=== PATIENT | female | born 1940 | race Caucasian/White ===

== ENCOUNTER → 2020-04-29 10:00 | Outpatient (BNVA) | payer MEDICARE, SELFPAY | PROVIDERS: Family Provider Family Medicine; PCP Family Medicine; Visit Provider Family Medicine | DX: I10 Essential (primary) hypertension (principal); K21.9 Gastro-esophageal reflux disease without esophagitis | CPT/HCPCS: 80053; 80061; 84443; 85025 ==

== ENCOUNTER → 2021-05-05 10:49 | Outpatient (BNVA) | payer MEDICARE, SELFPAY | PROVIDERS: Family Provider Family Medicine; PCP Family Medicine; Visit Provider Family Medicine | DX: I10 Essential (primary) hypertension (principal); H10.32 Unspecified acute conjunctivitis, left eye; E55.9 Vitamin D deficiency, unspecified | CPT/HCPCS: 80053; 80061; 84443; 85025 ==

== ENCOUNTER → 2021-08-03 10:50 | Outpatient (BNVA) | payer MEDICARE, SELFPAY | PROVIDERS: Family Provider Family Medicine; PCP Family Medicine; Visit Provider Orthopaedic Surgery | DX: M54.5 Low back pain (principal) | CPT/HCPCS: 72110 ==

== ENCOUNTER 2021-11-17 14:47 | Outpatient (CLI) | payer MEDICARE, SELFPAY ==
--- NOTE | 2021-11-17 14:58 | XR_ITS ---
WS: [id number] LUMBAR SPINE TECHNIQUE: 5 views of the lumbar spine CLINICAL INFORMATION: M54.50 - Low back pain, unspecified COMPARISON: August 03, 2021 FINDINGS: Evaluation is limited due to marked scoliosis. Advanced thoracolumbar scoliosis convex left. Osteopenia. Chronic biconcave compression L2 vertebral body unchanged. Retrolisthesis L2 on L3 and L1 on L2. Retrolisthesis L1 on L2 measuring 14 mm in neut ral. Mild instability on flexion extension again demonstrated. Moderate facet arthropathy L5-S1. Pelv ic phleboliths. XR/XR lumbar spine min 4V [id number] IMPRESSION: 1. Advanced thoracolumbar scoliosis convex left 2. Osteopenia. 3. Grade 2 retrolisthesis L1 on L2 with flexion/extension instability unchange d from previous. 4. Chronic biconcave compression L2 vertebral body unchanged.
== END 2021-11-17 14:48 | disposition home or self-care (01) ==
PROVIDERS: PCP Family Medicine; Visit Provider Family Medicine
DX: M41.85 Other forms of scoliosis, thoracolumbar region (principal); M85.88 Other specified disorders of bone density and structure, other site; S32.029A Unspecified fracture of second lumbar vertebra, initial encounter for closed fracture; X58.XXXA Exposure to other specified factors, initial encounter
CPT/HCPCS: 72110

== ENCOUNTER → 2022-05-12 11:05 | Outpatient (BNVA) | payer MEDICARE, SELFPAY | PROVIDERS: PCP Family Medicine; Visit Provider Nurse Practitioner | DX: I10 Essential (primary) hypertension (principal); R53.1 Weakness; R42 Dizziness and giddiness; F41.9 Anxiety disorder, unspecified; G62.9 Polyneuropathy, unspecified; R32 Unspecified urinary incontinence | CPT/HCPCS: 80053; 80061; 85025 ==

== ENCOUNTER 2022-05-24 06:00 | Outpatient (RCR) | payer MEDICARE, SELFPAY | END 2022-06-12 23:59 | disposition home or self-care (01) | LOC: TPT 06:00 | PROVIDERS: PCP Family Medicine; Referring Provider Nurse Practitioner; Visit Provider Nurse Practitioner | DX: R53.1 Weakness (principal); R42 Dizziness and giddiness | CPT/HCPCS: 97110; 97162 ==

== ENCOUNTER 2022-06-13 06:00 | Outpatient (RCR) | payer MEDICARE, SELFPAY | END 2022-07-13 23:59 | disposition home or self-care (01) | LOC: TPT 06:00 | PROVIDERS: PCP Family Medicine; Visit Provider Nurse Practitioner | DX: R53.1 Weakness (principal); R42 Dizziness and giddiness | CPT/HCPCS: 97110; 97116 ==

== ENCOUNTER 2022-07-14 06:00 | Outpatient (RCR) | payer MEDICARE, SELFPAY | END 2022-08-12 23:59 | disposition home or self-care (01) | LOC: TPT 06:00 | PROVIDERS: PCP Family Medicine; Visit Provider Nurse Practitioner | DX: R53.1 Weakness (principal); R42 Dizziness and giddiness | CPT/HCPCS: 97110; 97116 ==

== ENCOUNTER 2022-10-01 14:11 | Emergency (ER) | payer MEDICARE, SELFPAY ==
[2022-10-01] VITALS (11 sets, daily range): BP systolic 161–182; BP diastolic 86–105; PULSE 85–93; RESP 16–18; TEMP 36.7; O2SAT 93–96; BMI 29.9
--- NOTE | 2022-10-01 14:39 | ECG_ITS ---
[facility] Test Date: 2022-10-01 Pat Name: Ale Joy Department: Room: Gender: Female Survey And Mapping Technician: : 1940 Requested By: Roque Bermudez Order Number: [id number] Flori MD: Devon Hassan M.D. Measurements Intervals [place] Rate: 94 P: 73 AR: 165 QRS: 60 QRSD: 83 T: 72 QT: 359 QTc: 449 Interpretive Statements SINUS RHYTHM No previous ECG available for comparison Electronically Signed On 10-03-2022 18:22:15 COAL [employer]RE CONTROLLER by Devon Hassan M.D. [id number]
--- NOTE | 2022-10-01 15:05 | XRR_ITS ---
PROCEDURE INFORMATION: Exam: XR Chest Exam date and time: 10/01/2022 4:30 PM Age: 82 years old Clinical indication: Shortness of breath; Additional info: SOB TECHNIQUE: Imaging protocol: Radiologic exam of the chest. Views: 2 views. COMPARISON: CR XR chest 1V [id number] 09/16/2019 11:31 AM FINDINGS: Lungs: Curvilinear areas of left basilar scarring. Evaluation of the right mid and lower lungs is obscured by the opacification in this region, a suspected large hiatal hernia with possible atelectasis or scarring of the adjacent lung in this region. No consolidation. Pleural spaces: No pleural effusion. No pneumothorax. Heart/Mediastinum: No cardiomegaly. There is a suspected large hiatal hernia contributing to the opacification projecting over the right mid and lower lung. Bones/joints: Severe scoliosis with increased kyphosis of the thoracic spine again noted. Visualized osseous structures are intact. XR/XR chest 2V* [id number] IMPRESSION: Stable exam, no acute findings.
--- NOTE | 2022-10-01 15:53 | ED_ITS ---
HPI - SOB/Dyspnea General: Chief Complaint: Shortness of Breath/Dyspnea Stated Complaint: SOB Time Seen by Provider: 10/01/22 15:01 History of Present Illness: HPI Narrative: 82-year-old female presents with some shortness of breath. Patient reports that she just feels like she is having hard time catching her breath. She reports that started yesterday. She has a minimal cough. No fevers or chills reported. Patient reports that was worse yesterday and today. She denies any nausea, vomiting diarrhea or chest pain. Associated symptoms: Deny abdominal pain, chest pain, dizziness, fever(s), nausea, palpitations or vomiting Review of Systems Const: Denies: fever(s), chills or fatigue Eyes: Denies: change in vision or blurry vision ENMT: Denies: throat pain or ear or mastoid pain Card: Denies: chest pain or palpitations Resp: Reports: dyspnea and non-productive cough; Denies: wheezing or pain on inspiration GI: Denies: abdominal pain, nausea or vomiting : Denies: flank pain or difficulty voiding Musc: Denies: neck pain or back pain Skin/Breast: Denies: rash Neuro: Denies: headache(s) or dizziness PFSH ED PFSH: Medical History (Updated 10/01/22 @ 17:04 by Roque Bermudez DO) Anxiety Claustrophobia Gait instability GERD (gastroesophageal reflux disease) Hypertension Neuropathy Normal pressure hydrocephalus Systolic murmur Vitamin D deficiency Surgical History H/O eye surgery History of hysterectomy 2010 History of prolapse of bladder Family History Father CAD (coronary artery disease) Diabetes Brother CAD (coronary artery disease) Sister CAD (coronary artery disease) Mother CAD (coronary artery disease) Social History Smoking and tobacco status: former smoker Alcohol intake: never Lives independently: Yes Marital status: / Current occupational status: retired Current gender identity: Female Physical Exam Const: COMMON NORMALS: no acute distress, average body habitus, patient oriented x3, healthy appearing and alert HENMT: COMMON NORMALS: hearing grossly normal bilaterally and moist oral mucous membranes Chest: CHEST: Yes Symmetrical chest wall rise Resp: COMMON NORMALS: normal respiratory effort, No use of accessory muscles and clear to auscultation bilaterally AUSCULTATION: clear to auscultation bilaterally Cardio: COMMON NORMALS: regular rate and regular rhythm RATE: regular rate RHYTHM: regular rhythm GI: COMMON NORMALS: Soft to palpation and non-tender PALPATION: Yes Soft to palpation Extremity: COMMON NORMALS: normal to inspection and capillary refill normal Neuro: COMMON NORMALS: patient oriented x3, no focal motor deficits and no sensory deficits noted SENSORIUM/ORIENTATION: Yes alert Psych: COMMON NORMALS: Normal thought process present, cooperative and normal affect THOUGHT PROCESS: Normal thought process present Skin: COMMON NORMALS: no rashes or lesions noted and turgor normal GENERAL SKIN EXAM: no rashes or lesions noted and turgor normal Course Vital Signs: Vital signs: Vital Signs Temperature 98.0 F 10/01/22 14:24 Pulse Rate 85 10/01/22 17:21 Respiratory Rate 18 10/01/22 17:21 Blood Pressure 182/105 10/01/22 17:15 Pulse Oximetry 96 10/01/22 17:21 Oxygen Delivery Me thod 10/01/22 14:24 MDM - SOB/Dyspnea Medical Decision Making Patient with negative chest x-ray and negative labs. Patient is requesting to be discharged prior to the return of the respiratory panel. We will call patient if there is a positive. Discussed with her [id number] and supportive measures for cough. She should follow-up with her primary care provider as needed. Patient stable and discharged home Patient negative for any respiratory illnesses on viral panel. Lab Data 10/01/22 15:46 10/01/22 15:46 Labs/Radiology: Radiology Impressions Chest X-Ray 10/01/22 15:05 IMPRESSION: Stable exam, no acute findings. Laboratory Results WBC 6.5 10^3/uL (4.0-10.0) 10/01/22 15:46 RBC 4.18 10^6/uL (4.1-5.3) 10/01/22 15:46 Hgb 12.2 g/dL (11.5-15.3) 10/01/22 15:46 Hct 38.4 % (37.0-47.0) 10/01/22 15:46 MCV 91.9 fl (81-99) 10/01/22 15:46 MCH 29.2 pg (28.0-34.0) 10/01/22 15:46 MCHC 31.8 g/dL (30.0-36.0) 10/01/22 15:46 RDW 13.3 % (12.1-15.1) 10/01/22 15:46 Plt Count 247 10^3/cmm (130-400) 10/01/22 15:46 MPV 9.7 fL (7.4-10.4) 10/01/22 15:46 Neut % (Auto) 72.5 % 10/01/22 15:46 Lymph % (Auto) 18.1 % 10/01/22 15:46 Ross % (Auto) 8.1 % 10/01/22 15:46 Eos % (Auto) 0.8 % 10/01/22 15:46 Baso % (Auto) 0.2 % 10/01/22 15:46 Neut # (Auto) 4.73 10^3/uL (1.8-7.7) 10/01/22 15:46 Lymph # (Auto) 1.2 10^3/uL (0.8-4.8) 10/01/22 15:46 Ross # (Auto) 0.5 10^3/uL (0.2-0.9) 10/01/22 15:46 Eos # (Auto) 0.1 10^3/uL (0.0-0.8) 10/01/22 15:46 Baso # (Auto) 0.0 10^3/uL (0.0-0.1) 10/01/22 15:46 Nucleated RBC % (auto) 0 % 10/01/22 15:46 Nucleated RBCs # 0.0 /100WBC 10/01/22 15:46 Sodium 140 mmol/L (136-145) 10/01/22 15:46 Potassium 4.0 mmol/L (3.5-5.1) 10/01/22 15:46 Chloride 103 mmol/L (98-107) 10/01/22 15:46 Carbon Dioxide 24 mmol/L (22-29) 10/01/22 15:46 Anion Gap 17.0 (5-19) 10/01/22 15:46 BUN 14 mg/dL (8-23) 10/01/22 15:46 Creatinine 0.7 mg/dL (0.5-0.9) 10/01/22 15:46 GFR Calculation Not Reportable 10/01/22 15:46 Glucose 102 mg/dL (65-115) 10/01/22 15:46 Calculated Osmolality 291 mOsm/kg (285-295) 10/01/22 15:46 Calcium 9.6 mg/dL (8.5-10.5) 10/01/22 15:46 Total Bilirubin 0.2 mg/dL (0.15-1.2) 10/01/22 15:46 AST 17 U/L (0-32) 10/01/22 15:46 ALT 11 U/L (0-33) 10/01/22 15:46 Alkaline Phosphatase 69 U/L (35-105) 10/01/22 15:46 Troponin T Gen 5 ng/L 11 ng/L (0-10) H 10/01/22 15:46 Total Protein 6.8 g/dL (6.6-8.7) 10/01/22 15:46 Albumin 4.2 g/dL (3.5-5.2) 10/01/22 15:46 Globulin 2.6 g/dL (1.3-4.6) 10/01/22 15:46 Nasal Influ A H1 2008 PCR Not detected (NOT DETECT) 10/01/22 15:46 Adenovirus (PCR) Not detected (NOT DETECT) 10/01/22 15:46 C. pneumoniae DNA (PCR) Not detected (NOT DETECT) 10/01/22 15:46 Coronavirus 229E (PCR) Not detected (NOT DETECT) 10/01/22 15:46 Human Metapneumovir PCR Not detected (NOT DETECT) 10/01/22 15:46 Influenza A (H1) PCR Not detected (NOT DETECT) 10/01/22 15:46 Influenza A (H3) PCR Not detected (NOT DETECT) 10/01/22 15:46 Influenza Type A (PCR) Not detected (NOT DETECT) 10/01/22 15:46 Influenza Type B (PCR) Not detected (NOT DETECT) 10/01/22 15:46 M. pneumoniae (PCR) Not detected (NOT DETECT) 10/01/22 15:46 Parainfluenza 1 (PCR) Not detected (NOT DETECT) 10/01/22 15:46 Parainfluenza 2 (PCR) Not detected (NOT DETECT) 10/01/22 15:46 Parainfluenza 3 (PCR) Not detected (NOT DETECT) 10/01/22 15:46 Parainfluenza 4 (PCR) Not detected (NOT DETECT) 10/01/22 15:46 RSV Type A (PCR) Not detected (NOT DETECT) 10/01/22 15:46 RSV Type B (PCR) Not detected (NOT DETECT) 10/01/22 15:46 Entero/Rhino (PCR) Not detected (NOT DETECT) 10/01/22 15:46 SARS-CoV-2 (PCR) Not detected (NOT DETECT) 10/01/22 15:46 Discharge Plan Discharge Patient Disposition: Home Clinical Impression: Cough Condition: Stable Prescriptions: No Action famotidine 20 mg tablet 20 mg PO BID aspirin [Adult Low Dose Aspirin] 81 mg tablet,delayed release (DR/EC) 81 mg PO DAILY Intrinsi K21-Hzpeez 500-20-800 mcg-mg-mcg tablet 1 tab PO DAILY Caltrate + D3 Plus Minerals 300 mg-800 unit -25 mg-0.5 mg tablet 1 tab PO DAILY (DME) walk[facility] Counts [facility] See Rx Instructions .ROUTE .MEDSUPPLY Qty: 1 0RF Rx Instructions: As directed solifenacin [Vesicare] 10 mg tablet 10 mg PO DAILY Qty: 30 3RF ezetimibe [Zetia] 10 mg tablet 10 mg PO DAILY Qty: 90 1RF acetaminophen 500 mg Tablet 1,500 mg PO BID PRN (Reason: Pain) hydrochlorothiazide 25 mg tablet 25 mg PO DAILY losartan 100 mg tablet 100 mg PO DAILY memantine 10 mg tablet 10 mg PO DAILY duloxetine 60 mg capsule,delayed release(DR/EC) 60 mg PO DAILY Discharge Orders: Discharge ED (Routine); Ordered 10/01/22 Ordered By: Roque Bermudez Referrals: Nancy Guo MD [Primary Care Provider] - Discharge Diet: Usual diet Discharge Activity: Resume usual activity Patient Instructions: Antitussives (By mouth), Acute Cough (ED), Opioid Safety, Pain Management Activity Restrictions/Additional Instructions: Honey or other [id number] cough medication as needed. Follow-up with your primary care provider if symptoms or not improving over the next couple days or worsen throughout the week. Coding Level of Care Code ED Intelligence Operations for Chg Fwd Exam Comprehensive
[2022-10-01 15:59] LABS: Basophils % 0.2 %; Eosinophils # 0.1 10^3/uL (0.0-0.8); Eosinophils % 0.8 %; Hematocrit 38.4 % (37.0-47.0); Hemoglobin 12.2 g/dL (11.5-15.3); Lymphocytes # 1.2 10^3/uL (0.8-4.8); Lymphocytes % 18.1 %; Mean Corpuscular HGB Conc 31.8 g/dL (30.0-36.0); Mean Corpuscular Hemoglobin 29.2 pg (28.0-34.0); Mean Corpuscular Volume 91.9 fl (81-99); Mean Platelet Volume 9.7 fL (7.4-10.4); Monocytes # 0.5 10^3/uL (0.2-0.9); Monocytes % 8.1 %; Neutrophils # 4.73 10^3/uL (1.8-7.7); Neutrophils % 72.5 %; Nucleated Red Blood Cells % 0 %; Platelet Count 247 10^3/cmm (130-400); Red Blood Count 4.18 10^6/uL (4.1-5.3); Red Cell Distribution Width 13.3 % (12.1-15.1); White Blood Count 6.5 10^3/uL (4.0-10.0)
[2022-10-01 16:15] LABS: Troponin T (5th) Once 11 ng/L (0-10)
[2022-10-01 16:18] LABS: Alanine Aminotransferase 11 U/L (0-33); Albumin Level 4.2 g/dL (3.5-5.2); Alkaline Phosphatase 69 U/L (35-105); Aspartate Amino Transferase 17 U/L (0-32); Blood Urea Nitrogen 14 mg/dL (8-23); Calcium 9.6 mg/dL (8.5-10.5); Carbon Dioxide 24 mmol/L (22-29); Chloride 103 mmol/L (98-107); Globulin 2.6 g/dL (1.3-4.6); Glucose 102 mg/dL (65-115); Osmolality Calculated 291 mOsm/kg (285-295); Sodium 140 mmol/L (136-145); Total Bilirubin 0.2 mg/dL (0.15-1.2); Total Protein 6.8 g/dL (6.6-8.7)
[2022-10-01 17:40] LABS: Adenovirus Not Detected (NOT DETECT); Chlamydia Pneumoniae Not Detected (NOT DETECT); Coronavirus 229E,HKU1,NL63,OC4 Not Detected (NOT DETECT); Human Metapneumovirus Not Detected (NOT DETECT); Human Rhinovirus/Enterovirus Not Detected (NOT DETECT); Influenza A Not Detected (NOT DETECT); Influenza A H1 Not Detected (NOT DETECT); Influenza A H1-2009 Not Detected (NOT DETECT); Influenza A H3 Not Detected (NOT DETECT); Influenza B Not Detected (NOT DETECT); Mycoplasma Pneumoniae Not Detected (NOT DETECT); Parainfluenza Virus Type 1 Not Detected (NOT DETECT); Parainfluenza Virus Type 2 Not Detected (NOT DETECT); Parainfluenza Virus Type 3 Not Detected (NOT DETECT); Parainfluenza Virus Type 4 Not Detected (NOT DETECT); Respiratory Syncytial Virus A Not Detected (NOT DETECT); Respiratory Syncytial Virus B Not Detected (NOT DETECT); SARS-COV-2 Not Detected (NOT DETECT)
== END 2022-10-01 17:24 | disposition home or self-care (01) ==
PROVIDERS: Emergency Provider Student in an Organized Health Care Education/Training Program; PCP Family Medicine
DX: R05.9 Cough, unspecified (principal); Z79.82 Long term (current) use of aspirin; Z20.822 Contact with and (suspected) exposure to COVID-19; I10 Essential (primary) hypertension; Z87.891 Personal history of nicotine dependence
CPT/HCPCS: 71046; 80053; 84484; 85025; 87486; 87581; 87633; 93005; 99285

== ENCOUNTER → 2023-01-30 10:44 | Outpatient (BNVA) | payer MEDICARE, SELFPAY | PROVIDERS: PCP Family Medicine; Visit Provider Family Medicine | DX: R41.3 Other amnesia (principal); E55.9 Vitamin D deficiency, unspecified; I10 Essential (primary) hypertension; R53.1 Weakness | CPT/HCPCS: 80053; 80061; 82306; 82607; 84443; 85025 ==

== ENCOUNTER 2023-10-28 13:27 | Emergency (ER) | payer MEDICARE, SELFPAY ==
[2023-10-28 13:29] VITALS: BP 144/80; PULSE 94; RESP 15; TEMP 36.7; O2SAT 92
--- NOTE | 2023-10-28 13:46 | XRR_ITS ---
PROCEDURE INFORMATION: Exam: XR Lumbosacral Spine Exam date and time: 10/28/2023 2:07 PM Age: 83 years old Clinical indication: Low back pain; Patient HX: Low back/pelvic pain post fall x 3 weeks ago TECHNIQUE: Imaging protocol: Radiologic exam of the lumbosacral spine. Views: 2 or 3 views. COMPARISON: CR XR lumbar spine min 4V [id number] 11/17/2021 3:06 PM FINDINGS: Bones/joints: Advanced thoracolumbar scoliosis convex left. Chronic compression L2 vertebral body unchanged. Similar retrolisthesis L1 on L2 and L2 on L3. Moderate multilevel spondylosis and facet arthropathy. Soft tissues: No acute findings. XR/XR lumbar spine 2-3V* [id number] IMPRESSION: Extensive multilevel degenerative changes without acute findings.
--- NOTE | 2023-10-28 13:46 | XRR_ITS ---
PROCEDURE INFORMATION: Exam: XR Pelvis Exam date and time: 10/28/2023 2:07 PM Age: 83 years old Clinical indication: Patient HX: Low back/pelvic pain post fall x 3 weeks ago TECHNIQUE: Imaging protocol: Radiologic exam of the pelvis. Views: 1 or 2 view. COMPARISON: CR (PELVIS, ) 10/28/2023 2:07 PM FINDINGS: Bones/joints: No fracture or dislocation. Moderate bilateral osteoarthritic changes. Soft tissues: No acute findings. XR/XR pelvis 1-2V* [id number] IMPRESSION: Moderate osteoarthritic changes without acute findings.
--- NOTE | 2023-10-28 15:02 | ED_ITS ---
HPI - Fall General: Chief Complaint: Fall Stated Complaint: back pains Time Seen by Provider: 10/28/23 15:00 Source: patient Mode of arrival: ambulatory Limitations: no limitations History of Present Illness: 83-year-old female states that she has c hronic back pain has had severe back problems states she had a fall 4 weeks ago and its caused her to have worsening pain. States she is has pain especially with walking rates her pain currently a 4 out of 10 its mainly in her lower back. Has had some pelvic pain as well. Associated symptoms-after fall: Denies abdominal pain, chest pain, headache(s) or neck pain Review of Systems Const: Denies: fever(s), chills, body aches or change in appetite ENMT: Denies: throat pain or dental pain Card: Denies: chest pain Resp: Denies: dyspnea GI: Denies: abdominal pain, nausea, vomiting or diarrhea Musc: Reports: back pain; Denies: neck pain Skin/Breast: Denies: rash Neuro: Denies: headache(s) PFSH ED PFSH: Medical History (Updated 10/28/23 @ 15:42 by Karla Thomas MD) Normal pressure hydrocephalus Claustrophobia GERD (gastroesophageal reflux disease) Vitamin D deficiency Neuropathy Gait instability Anxiety Systolic murmur Hypertension Surgical History History of prolapse of bladder History of hysterectomy 2010 H/O eye surgery Family History Father CAD (coronary artery disease) Diabetes Brother CAD (coronary artery disease) Sister CAD (coronary artery disease) Mother CAD (coronary artery disease) Social History (Updated 02/15/23 @ 14:57 by Dorinda Zavaleta LPN, RT) Smoking and tobacco/nicotine status: never used tobacco/nicotine Second hand smoke exposure: No Alcohol intake: never Substance/Drug Use: never Caregiver/support person: No Lives independently: Yes Household members: none Housing: Apartment Marital status: / service: No Current occupational status: retired Pets and animals: Yes Pets & animals: dog(s) Do you think of yourself as: Straight/Heterosexual Current gender identity: Female Physical Exam Const: COMMON NORMALS: no acute distress, patient oriented x3 and healthy appearing HENMT: COMMON NORMALS: normocephalic and atraumatic HEAD & SCALP: normocephalic and atraumatic Neck/C-Spine: COMMON NORMALS: full ROM and supple Chest: COMMONS NORMALS: normal inspection of the chest Resp: COMMON NORMALS: normal respiratory effort, No retractions, No use of accessory muscles and clear to auscultation bilaterally AUSCULTATION: clear to auscultation bilaterally Cardio: COMMON NORMALS: regular rate, regular rhythm and No murmurs present (Cardio) RATE: regular rate RHYTHM: regular rhythm Back/Pelvis: OTHER: No midline tenderness patient has no saddle anesthesia she is able to stand Extremity: COMMON NORMALS: normal to inspection and full ROM Neuro: COMMON NORMALS: patient oriented x3, moves all extremities and no focal motor deficits Psych: COMMON NORMALS: mental status grossly normal, Normal thought process present and cooperative THOUGHT PROCESS: Normal thought process present Skin: COMMON NORMALS: no rashes or lesions noted and no wounds GENERAL SKIN EXAM: no rashes or lesions noted Course Vital Signs: Vital signs: Vital Signs Temperature 98.1 F 10/28/23 13:29 Pulse Rate 94 10/28/23 13:29 Respiratory Rate 15 10/28/23 13:29 Blood Pressure 146/96 10/28/23 16:00 Pulse Oximetry 95 10/28/23 16:00 Oxygen Delivery Me thod Room Air 10/28/23 15:49 MDM - Fall Medical Decision Making Patient's presents here with back pain been worsening over the last 4 weeks after a fall she has chronic back pain x-ray shows severe degenerative changes no acute fractures. Patient is able to ambulate we will prescribe her pain meds we will also prescribe her MiraLAX to take with the pain meds she is to follow- up with PCP likely needs some physical therapy will also try to get her referral to pain management. Medical Records I reviewed the patient's medical records. Lab Data Radiology Impressions Lumbar Spine X-Ray 10/28/23 13:46 IMPRESSION: Extensive multilevel degenerative changes without acute findings. Pelvis X-Ray 10/28/23 13:46 IMPRESSION: Moderate osteoarthritic changes without acute findings. All radiology interpretation(s) finalized by discharge Discharge Plan Discharge Patient Disposition: Home Clinical Impression: Fall Back pain Qualifiers: Back pain location: low back pain Chronicity: chronic Back pain laterality: bilateral Sciatica presence: without sciatica Qualified Code(s): M54.50 - Low back pain, unspecified Condition: Stable Prescriptions: New hydrocodone-acetaminophen 5-325 mg tablet 1 tab PO Q6H PRN (Reason: pain) Qty: 14 0RF Miralax 17 gram powder in packet 17 g PO BID PRN (Reason: constipation) Qty: 14 0RF No Action aspirin [Adult Low Dose Aspirin] 81 mg tablet,delayed release (DR/EC) 81 mg PO QAM ([facility]) [facility] [place] See Rx Instructions .ROUTE .MEDSUPPLY Qty: 1 0RF Rx Instructions: As directed losartan 100 mg tablet 100 mg PO DAILY 90 Days Qty: 90 1RF acetaminophen 500 mg Tablet 1,500 mg PO BID PRN (Reason: Pain) hydrochlorothiazide 25 mg tablet 25 mg PO QAM ezetimibe 10 mg tablet 10 mg PO QAM memantine 10 mg tablet 10 mg PO DAILY duloxetine 60 mg capsule,delayed release(DR/EC) 60 mg PO QAM solifenacin 10 mg tablet 10 mg PO DAILY Discharge Orders: Discharge ED (Routine); Ordered 10/28/23 Ordered By: Karla Thomas Referrals: Nancy Guo MD [Primary Care Provider] - 1-3 days Discharge Diet: Advance as tolerated Discharge Activity: Resume usual activity Patient Instructions: Back Pain (ED), Opioid Safety Coding Level of Care Code ED Medical Data Analyst for Bebe Trejo
[2023-10-28] MEDS: HYDROcodone-acetaminophen 5-325 mg Tablet 1 TAB PO (15:48)
[2023-10-28 15:49] VITALS: BP 146/96; O2SAT 95
[2023-10-28 16:00] VITALS: BP 146/96; O2SAT 95
--- NOTE | 2023-10-30 09:04 | DCPLANNER ---
Referral was sent to pain management on 10/28/23 at 0904. Clinic to contact patient.
== END 2023-10-28 16:00 | disposition home or self-care (01) ==
PROVIDERS: Emergency Provider Emergency Medicine; PCP Family Medicine
DX: M54.50 Low back pain, unspecified (principal); Z79.82 Long term (current) use of aspirin; I10 Essential (primary) hypertension
CPT/HCPCS: 72100; 72170; 99284